=== PATIENT | male | born 1960 | race African-American/Black ===

== ENCOUNTER 2018-07-22 18:59 | Emergency (ER) | payer OTHER ==
[~2018-07-22] VITALS: Ht 175.3 cm; Wt 127.0 kg
[2018-07-22] MEDS ORDERED: LISINOPRIL5 MG PO (19:27)
[2018-07-22 19:57] LABS: HEMOGLOBIN 13.7 g/dl (14.0-18.0); MEAN CELL VOLUME 94.8 fL CALC (80.0-100.0); MEAN CORPUSCULAR HGB 32.5 pG CALC (26.0-32.0); MEAN CORPUSCULAR HGB CONC 34.3 g/L CALC (32.0-36.0); NEUT# 1.32 thou/uL (1.82-7.42); RED BLOOD COUNT 4.22 mill/uL (4.70-6.10); RED CELL DISTRI WIDTH 12.2 % (11.5-15.5)
[2018-07-22 20:13] LABS: ANION GAP 13 (6-22 (CALC)); BUN 16 mg/dL (9-20); BUN/CREATININE RATIO 17 (12-20 (CALC)); CARBON DIOXIDE 27 mmol/l (22-30); CHLORIDE 103 mmol/l (95-108); CREATININE 0.9 mg/dL (0.7-1.3); GFR > 60 ML/MIN (>=60 (CALC)); GFR FOR AFR.AMER. > 60 ML/MIN (>=60 (CALC)); POTASSIUM 3.9 mmol/l (3.5-5.1); SODIUM 139 mmol/l (137-146)
[2018-07-22] MEDS ORDERED: TRAMADOL HCL50 MG PO (20:33)
[2018-07-22] MEDS ORDERED: VOLTAREN - GENE75 MG PO (20:33)
[2018-07-22 20:50] VITALS: BP 159/84
== END 2018-07-22 20:50 | disposition home or self-care (01) ==
LOC: ED 18:59
PROVIDERS: Family Medicine
DX: M17.12 Unilateral primary osteoarthritis, left knee (principal); I10 Essential (primary) hypertension; M25.562 Pain in left knee; M25.462 Effusion, left knee

== ENCOUNTER 2021-02-07 08:12 | Day surgery (SDC) | payer OTHER ==
[~2021-02-07] VITALS: Ht 175.3 cm; Wt 145.1 kg
[~2021-02-07 08:12] MED LIST: HYDROCHLOROTH12.5 MG PO; IBUPROFEN600 MG PO; LISINOPRIL5 MG PO; TRAMADOL HCL50 MG PO; VOLTAREN - GENE75 MG PO
[2021-02-07 10:08] VITALS: BP 134/89
== END 2021-02-07 10:29 | disposition home or self-care (01) ==
LOC: ENDO 08:12
PROVIDERS: ATTEND Surgery
DX: Z12.11 Encounter for screening for malignant neoplasm of colon (principal); K57.30 Diverticulosis of large intestine without perforation or abscess without bleeding; I10 Essential (primary) hypertension; E78.5 Hyperlipidemia, unspecified; I48.91 Unspecified atrial fibrillation